=== PATIENT | female | born 1965 | race Caucasian/White ===

== ENCOUNTER 2016-12-04 11:57 | Emergency (ER) | payer MEDICARE, OTHER ==
[2016-12-04] MEDS ORDERED: NORMAL SALINE 1,000 ML IV ONE ×2 (12:19→16:36)
[2016-12-04 12:23] LABS: Hematocrit 37.4 % (37.0-47.0); Hemoglobin 12.7 gm/dL (12.5-16.0); Mean Cell Volume 89.7 fl (78-100); Mean Corpuscular Hemoglobin 30.5 pg (27-31); Mean Platelet Volume 8.9 fl (6.0-9.5); Neutrophil # 3.2 K/mm3 (1.3-6.0); Neutrophil % 46.9 % (42-75.0); Platelet Count 340 K/mm3 (150-450); Red Blood Count 4.17 M/mm3 (4.2-5.4); Red Cell Distribution Width 12.6 % (11.5-14.0); White Blood Count 6.8 K/mm3 (4.0-10.5)
[2016-12-04 12:24] LABS: Urine Bilirubin Negative (NEGATIVE); Urine Blood Negative /ul (NEGATIVE); Urine Ketone Negative (NEGATIVE); Urine Nitrite Negative (NEGATIVE); Urine Protein Negative (NEGATIVE); Urine Urobilinogen Normal (NORMAL)
[2016-12-04 12:32] LABS: Urine Appearance Clear; Urine Bacteria TRACE; Urine Color Yellow; Urine RBC None Seen /hpf (0-5)
[2016-12-04 12:35] LABS: ALT 16 U/L (19-67); AST 12 U/L (0-48); Albumin * 3.2 gm/dl (3.4-5.0); Alkaline Phosphatase * 52 U/L (50-170); Anion Gap 11.7 mmol/L (6.8-13.8); BUN/Creatinine Ratio 8.8 (9.0-21.6); Bilirubin, Total 0.2 mg/dL (0.0-1.1); Blood Urea Nitrogen 7 mg/dL (3-23); Ca. Corrected For Albumin 8.7 mg/dL (8.4-10.2); Calcium * 8.4 mg/dL (7.9-10.9); Carbon Dioxide 26.3 mmol/L (24-32.6); Chloride 110 mmol/L (97-106); Glucose * 92 mg/dL (70-110); Salicylate 5.4 mg/dL (2.8-20.0); Sodium 144 mmol/L (132-142); Total Protein 6.2 gm/dL (6.2-8.2)
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
[2016-12-04 12:37] LABS: Cocaine Ur Negative (NEGATIVE); Urine Barbiturate Negative (NEGATIVE); Urine Benzodiazepines Negative (NEGATIVE); Urine Opiates Negative (NEGATIVE); Urine PCP Negative (NEGATIVE); Urine THC Negative (NEGATIVE)
[2016-12-04 17:18] VITALS: BP 115/76
== END 2016-12-04 17:59 | disposition home or self-care (01) ==
LOC: ER 11:57
DX: F10.121 Alcohol abuse with intoxication delirium (principal); T50.901A Poisoning by unspecified drugs, medicaments and biological substances, accidental (unintentional), initial encounter; F33.1 Major depressive disorder, recurrent, moderate; S09.90XA Unspecified injury of head, initial encounter; W19.XXXA Unspecified fall, initial encounter
CPT/HCPCS: 36415; 70450; 80053; 80307; 81001; 85025; 87077; 87086; 87186; 93005; 94760; 99283; G0480; G0481